=== PATIENT | male | born 2000 | race Caucasian/White ===

== ENCOUNTER 2021-02-21 13:01 | Emergency (ER) | payer BC, SELFPAY ==
--- NOTE | 2021-02-21 13:16 | USR_ITS ---
PROCEDURE INFORMATION: Exam: US Scrotum Exam date and time: 02/21/2021 1:16 PM Age: 20 years old Clinical indication: Groin pain and scrotum pain TECHNIQUE: Imaging protocol: Real-time ultrasound of the scrotum and contents with color Doppler and image documentation. COMPARISON: No relevant prior studies available. FINDINGS: Right testicle: Normal arterial and venous flow. Normal echogenicity. 3.2 x 4.5 x 2.5 cm. Left testicle: Normal arterial and venous flow. Normal echogenicity. 4.4 x 2.3 x 4.2 cm. Epididymides: Normal. Scrotum: Normal. US/US scrotum [id number] IMPRESSION: Testicles are unremarkable.
[2021-02-21 13:32] VITALS: BP 127/76; PULSE 76; RESP 16; TEMP 36.7; O2SAT 100
--- NOTE | 2021-02-21 14:21 | W.ED.MALEGU ---
HPI - Male Genitourinary General: Chief complaint: Urogenital-Male Stated complaint: r testicular pain radiating into abd Time Seen by Provider: 02/21/21 13:16 History of Present Illness: HPI Narrative: 20-year-old male presents emergency room with complaints of testicular pain on the right for the last week. He denies any dysuria urgency or frequency or hematuria no history of previous difficulty with testicle pain. No recent trauma. No history of kidney stones. Pain radiates up into the groin but not into the abdomen. He is not noticed any bulging swelling redness or erythema. No difficulty with bowels. MD Complaint: testicle pain Onset (ago): week(s) (1) Duration: constant Location: right testicle Radiation: right inguinal region Severity: moderate Quality: aching Relieving factors: none Exacerbating factors: none Associated symptoms: Deny discharge, dysuria, fevers/chills, hematuria, nausea, rash, swelling, urinary incontinence, urinary retention, mass or vomiting Review of Systems Const: Denies: fever(s), chills, body aches, change in appetite, fatigue or malaise ENMT: Denies: throat pain, ear or mastoid pain, nasal discharge or nasal congestion Card: Denies: chest pain, edema, dyspnea on exertion or orthopnea Resp: Denies: dyspnea, productive cough or non-productive cough GI: Denies: nausea or vomiting : Denies: dysuria, urinary incontinence or hematuria Skin/Breast: Denies: rash or pruritus PFSH ED PFSH: Medical History (Updated 02/21/21 @ 15:43 by Erick Perkins DO) No pertinent past medical history Surgical History (Updated 02/21/21 @ 14:26 by Erick Perkins DO) No pertinent past surgical history Social History Smoking and tobacco status: never smoked Physical Exam Const: COMMON NORMALS: no acute distress GENERAL APPEARANCE: cooperative and comfortable ORIENTATION/CONSCIOUSNESS: Yes awake, Yes oriented to person, Yes oriented to place and Yes oriented to time HENMT: COMMON NORMALS: normocephalic, atraumatic and hearing grossly normal bilaterally HEAD & SCALP: normocephalic and atraumatic Neck/C-Spine: COMMON NORMALS: no JVD Lymph: LYMPHATIC: no lymphadenopathy noted and no lymphedema noted Resp: COMMON NORMALS: normal respiratory effort, No retractions, No use of accessory muscles and clear to auscultation bilaterally AUSCULTATION: clear to auscultation bilaterally Cardio: COMMON NORMALS: no JVD, regular rate, regular rhythm and No murmurs present (Cardio) RATE: regular rate RHYTHM: regular rhythm GI: COMMON NORMALS: Soft to palpation and No hepatosplenomegaly present AUSCULTATION: Yes normoactive bowel sounds PALPATION: Yes Soft to palpation, No Tenderness to palpation present (GI), No Guarding due to palpation present (GI) and Yes No hepatosplenomegaly present : COMMON NORMALS: Yes no CVA tenderness BLADDER/KIDNEY EXAM: Yes no CVA tenderness SCROTUM: Yes testes descended bilaterally, No inguinal hernia, Yes Scrotal tenderness present, No erythematous, No ecchymosis, No edematous, No scrotal swelling, No Scrotal lesions present and No scrotal mass TESTES: Yes testicular lie normal, No Enlarged testicle(s) present, No testicular swelling, Yes testicular tenderness, No testicular mass and Yes epididymides normal Back/Pelvis: COMMON NORMALS: no CVA tenderness Extremity: COMMON NORMALS: normal to inspection, capillary refill normal, no clubbing, cyanosis or edema, no calf tenderness and no pedal edema Neuro: SENSORIUM/ORIENTATION: Yes oriented to person, Yes oriented to place and Yes oriented to time Skin: COMMON NORMALS: no rashes or lesions noted GENERAL SKIN EXAM: no rashes or lesions noted Course Vital Signs: Vital signs: Vital Signs Temperature 98.1 F 02/21/21 13:32 Pulse Rate 76 02/21/21 13:32 Respiratory Rate 16 02/21/21 13:32 Blood Pressure 127/76 02/21/21 13:32 Pulse Oximetry 100 02/21/21 13:32 MDM - Male MDM Narrative: Medical decision making narrative: Labs and imaging reviewed. No significant finding on the ultrasound or exam. We will go and discharge patient home diclofenac to use as needed if persists refer to [facility] from PCP. Lab Data: Labs: Lab Results 02/21/21 02/21/21 02/21/21 14:28 14:28 14:28 WBC 9.5 10^3/uL 10^3/ uL (4.5-13.0) RBC 5.55 10^6/uL H 10 ^6/uL (4.1-5.3) Hgb 15.3 g/dL g/dL (11.7-16.6) Hct 47.3 % % (42.0-52.0) MCV 85.2 fl fl (80-94) MCH 27.6 pg L pg (28.0-34.0) MCHC 32.3 g/dL g/dL (30.0-36.0) RDW 12.2 % % (12.1-15.1) Plt Count 291 10^3/cmm 10^3 /cmm (130-400) MPV 10.3 fL fL (7.4-10.4) Neut % (Auto) 86.4 % % Lymph % (Auto) 8.3 % % Cascade % (Auto) 4.7 % % Eos % (Auto) 0.0 % % Baso % (Auto) 0.4 % % Neut # (Auto) 8.20 10^3/uL H 10 ^3/uL (1.8-8.0) Lymph # (Auto) 0.8 10^3/uL L 10^ 3/uL (1.5-6.5) Cascade # (Auto) 0.5 10^3/uL 10^3/ uL (0.2-0.9) Eos # (Auto) 0.0 10^3/uL 10^3/ uL (0.0-0.8) Baso # (Auto) 0.0 10^3/uL 10^3/ uL (0.0-0.1) Nucleated RBC % (a uto) 0 % % Nucleated RBCs # 0.0 /100WBC /100W BC Sodium 138 mmol/L mmol/L (136-145) Potassium 3.7 mmol/L mmol/L (3.5-5.1) Chloride 99 mmol/L mmol/L (98-107) Carbon Dioxide 23 mmol/L mmol/L (22-29) Anion Gap 19.7 H (5-19) BUN 12 mg/dL mg/dL (6-20) Creatinine 0.7 mg/dL mg/dL (0.7-1.2) GFR Calculation 143.8 mL/min H mL /min (90-130) Glucose 88 mg/dL mg/dL (65-115) Calculated Osmolal ity 285 mOsm/kg mOsm/ kg (285-295) Calcium 9.6 mg/dL mg/dL (8.5-10.5) Urine Color Straw (Yellow) Urine Appearance Clear (CLEAR) Urine pH 7 (5-7) Ur Specific Gravit y 1.010 (1.005-1.030) Urine Protein Neg (Negative) Urine Glucose (UA) Norm (Normal) Urine Ketones Negative (Negative) Urine Blood Neg (Negative) Urine Nitrate Negative (Negative) Urine Bilirubin Neg (Negative) Urine Urobilinogen Norm mg/dL mg/dL (Negative) Ur Leukocyte Dipika ase Negative (Negative) Discharge Plan Discharge Patient Disposition: Home Clinical Impression: Pain in right testicle Condition: Stable Prescriptions: New diclofenac sodium 75 mg tablet,delayed release (DR/EC) 75 mg PO Q12H PRN (Reason: pain) Qty: 20 RF: 0 Discharge Orders: Discharge ED (Routine); Ordered 02/21/21 Ordered By: Erick Perkins Referrals: Sushma Foster, ENVIRONMENTAL HEALTH OFFICER-C [Primary Care Provider] - Discharge Diet: Usual diet Discharge Activity: Increase activity as tolerated Patient Instructions: Opioid Safety Activity Restrictions/Additional Instructions: Pain persist follow-up with your primary care doctor for referral to urology. Coding Level of Care Code ED [employer] Project Manager for [facility] Fwd Exam Comprehensive
[2021-02-21 14:50] LABS: Basophils % 0.4 %; Hematocrit 47.3 % (42.0-52.0); Hemoglobin 15.3 g/dL (11.7-16.6); Lymphocytes # 0.8 10^3/uL (1.5-6.5); Lymphocytes % 8.3 %; Mean Corpuscular HGB Conc 32.3 g/dL (30.0-36.0); Mean Corpuscular Hemoglobin 27.6 pg (28.0-34.0); Mean Corpuscular Volume 85.2 fl (80-94); Mean Platelet Volume 10.3 fL (7.4-10.4); Monocytes # 0.5 10^3/uL (0.2-0.9); Monocytes % 4.7 %; Neutrophils % 86.4 %; Nucleated Red Blood Cells % 0 %; Platelet Count 291 10^3/cmm (130-400); Red Blood Count 5.55 10^6/uL (4.1-5.3); Red Cell Distribution Width 12.2 % (12.1-15.1); White Blood Count 9.5 10^3/uL (4.5-13.0)
[2021-02-21 15:34] LABS: Add Urine Microscopic? NO; Charge for UA Resulting for Rev
[2021-02-21 15:39] LABS: Bilirubin Urine Neg (Negative); Blood Urine Neg (Negative); Glucose Urine UA Norm (Normal); Ketones Urine Negative (Negative); Leukocyte Esterase Urine Negative (Negative); Nitrate Urine Negative (Negative); Protein Urine Neg (Negative); Urine Appearance Clear (CLEAR); Urine Color Straw (Yellow); Urobilinogen Urine Norm (Negative); pH Urine 7 (5-7)
[2021-02-21 15:42] LABS: Anion Gap 19.7 (5-19); Blood Urea Nitrogen 12 mg/dL (6-20); Calcium 9.6 mg/dL (8.5-10.5); Carbon Dioxide 23 mmol/L (22-29); Chloride 99 mmol/L (98-107); Creatinine Clr Calc Pharmacy 151.1976; Glomerular Filtration Rate 143.8 mL/min (90-130); Glucose 88 mg/dL (65-115); Osmolality Calculated 285 mOsm/kg (285-295); Potassium 3.7 mmol/L (3.5-5.1); Sodium 138 mmol/L (136-145)
== END 2021-02-21 15:50 | disposition home or self-care (01) ==
PROVIDERS: Emergency Provider Family Medicine; PCP Nurse Practitioner
DX: N50.811 Right testicular pain (principal)
CPT/HCPCS: 76870; 80048; 81003; 85025; 99282; 99291